=== PATIENT | male | born 1990 | race Caucasian/White ===

== ENCOUNTER 2021-04-11 08:00 | Outpatient (RCR) | payer OTHER, SELFPAY ==
--- NOTE | 2021-03-28 09:06 | HP.PTEVAL_ITS ---
Patient's Visit Information AR COOPER is a 31 year old M referred to Physical Therapy by MANUEL MCCLAIN with a diagnosis of OSTEOLYSIS RIGHT SHOULDER. Date of Evaluation: 03/28/21 Physical Therapist: Ken Blanchard, PT, Cert MDT, OCS - Visit Plan Frequency: 1-2x /Week Duration: 3 Weeks Plan: PT INTERVETIONS FOR HEP FOR POSTURAL EX'S,ERC/SCPAULAR STRENGTHENING - Subjective This 31 y/o male presents to physical therapy with right shoulder pain. Patient has right shoulder pain since October with symptoms gradually worsening. Patient symptoms insidious onset without injury. Seen family DR recommended Ortho consult. Patient had x-rays -. Recommended. PT and cortisone injection has helped . Patient located AC -anterior /posterior. Aggravating factors impact ,lifting heavy ,carry something job demands. Family DR recommended anti-infla mmatory. Denies paresthesia/tingling. Patient sleeping okay at night. SOCAIL: . VOCATION: Benefits Consultant - Pain Right Shoulder Pain Intensity (Out of 10): 4 Pain Intensity Range: 10 Comment: activity - Objective POSTURE: rounded shoulders head forward. PALPATION: unremarkable. NEURO: denies paresthesia/tingling. AROM: flexion 170 degrees ,abduction 170 degrees ,ER 90 degrees ,IR L5 overpressure no pain. MMT: RTC 4/5,DELTOID 4/5, scapular strength 4-/5 - Special Tests R Shoulder Belly Press - SupScap: Negative R Shoulder Neer - Impingement: Negative R Shoulder Saravia Juan - Impingement: Negative R Shoulder Biceps Load Test - Labrum: Negative - Balance/Special Test Scores Quick DASH Score: 29.5450 - Goals Goal 1:: I with HEP to manage shoulder pain Goal Time Frame: 2-4 Weeks Goal 2:: Improve posture for job demands to minimize shoulder pain Goal Time Frame: 2-4 Weeks Goal 3:: Patient to demonstrate improvement with decrease shoulder pain by 50% during job demnads Goal Time Frame: 2-4 Weeks Goal 4:: Patient to improve quick dash by 5 points to improve job demnads. Goal Time Frame: 2-4 Weeks - Rehabilitation Potential Physical Therapy Diagnosis: This patient has right shoulder pain with heavy lifting [place] with job demands thus benefit from skilled services to impove function RTC Rehabilitation Potential: Good - Anticipated Interventions Patient/Client Instruction: Educate patient on: Condition, Plan of Care For the Purpose of:: To decrease pain, To increase ROM, To improve muscle performance and motor function, To improve ability to perform ADL's, To increase tolerance to activity/condition/position, To improve performance and independence with ADL's, To improve ability of physical actions for home/community/work/leisure, To improve health of tissue, To decrease soft tissue restriction, To prevent re-injury Therapeutic Exercise to Include: Strength training, Postural training, Flexibilty training, Scapular Strength/Stabilization Comment: RTC For the Purpose of:: To decrease pain, To increase ROM, To improve muscle performance and motor function, To increase tolerance to activity/condition/position, To improve ability of physical actions for home/community/work/leisure, To improve health of tissue, To decrease soft tissue restriction, To reduce risk of recurrence TENS: Yes IF ES: Yes Cryotherapy (ice pack, ice massage): Yes Thermo therapy (hot pack): Yes Ultrasound (thermal/non thermal): Yes For the Purpose of:: To decrease pain, To increase ROM, To improve nutrient delivery to tissue, To increase oxygenation perfusion, To improve health of tissue, To decrease soft tissue restriction Thank you for the opportunity to evaluate your patient. For Medicare and Medicare HMO plans, please review the plan of care and approve it. It will need to be FAXED BACK to us at [phone] for Medicare purposes. For Medicare only, by signing this I certify the plan of care. Please let me know if there are questions or concerns regarding this plan of care. Physician Signature: Date:
--- NOTE | 2021-06-07 09:38 | HP.PT.NRP ---
AR COOPER was seen in my office for initial evaluation on 03/28/21. The following Plan of Care was established for this patient: Initial Frequency: 1-2x /Week Initial Duration: 3 Weeks Patient/Client Instruction: Educate patient on: Condition, Plan of Care For the Purpose of:: To decrease pain, To increase ROM, To improve muscle performance and motor function, To improve ability to perform ADL's, To increase tolerance to activity/condition/position, To improve performance and independence with ADL's, To improve ability of physical actions for home/community/work/leisure, To improve health of tissue, To decrease soft tissue restriction, To prevent re-injury Therapeutic Exercise to Include: Strength training, Postural training, Flexibilty training, Scapular Strength/Stabilization For the Purpose of:: To decrease pain, To increase ROM, To improve muscle performance and motor function, To increase tolerance to activity/condition/position, To improve ability of physical actions for home/community/work/leisure, To improve health of tissue, To decrease soft tissue restriction, To reduce risk of recurrence TENS: Yes IF ES: Yes Cryotherapy (ice pack, ice massage): Yes Thermo therapy (hot pack): Yes Ultrasound (thermal/non thermal): Yes For the Purpose of:: To decrease pain, To increase ROM, To improve nutrient delivery to tissue, To increase oxygenation perfusion, To improve health of tissue, To decrease soft tissue restriction This patient was last seen in our office . Pertinent comments regarding their Physical therapy will appear below: Patient seen PT for HEP for right shoulder pain thus Plan for MRI At this point I will be discontinuing this patient from physical therapy. I would be happy to see this patient again in the future if found appropriate by the physician. Thank you! Ken Blancahrd, PT, Cert MDT, OCS Balance/Gait/Functional tests - Balance/Special Test Scores Quick DASH Score: 13.6385
== END 2021-04-11 19:00 | disposition home or self-care (01) ==
LOC: PT 08:00
PROVIDERS: PCP Family Medicine
DX: M89.511 Osteolysis, right shoulder (principal)
CPT/HCPCS: 97110; 97162